=== PATIENT | male | born 1960 | race Caucasian/White ===

== ENCOUNTER 2018-09-26 07:27 | Emergency (ER) | payer OTHER, SELFPAY ==
[2018-09-26] VITALS (22 sets, daily range): BP systolic 75–186; BP diastolic 54–109; PULSE 46–70; RESP 11–18; TEMP 37.1; O2SAT 95–100; BMI 31.2
--- NOTE | 2018-09-26 07:53 | PC.NURSE ---
pt and spouse reports, pt with left epigastric,left chest ,back discomfort since monday, seen and evaluated at [facility], given rx omeprazole, tums. today spouse noted, high bp 191/110. pt continue to have left chest discomfort worsen with deep breathing. denies fever,coughing,vomiting. denies trauma,injuries.
--- NOTE | 2018-09-26 07:54 | DI.RAD.S_ITS ---
PROCEDURE: XR CHEST 1V INDICATIONS: chest pain, radiating to back TECHNIQUE: One view of the chest was acquired. COMPARISON: None. FINDINGS: Surgical changes and devices: None. Lungs and pleura: Lungs are clear. No pleural effusions or pneumothorax. Mediastinum: Mediastinal contours appear normal. Heart size is normal. Bones and chest wall: No suspicious bony lesions. Overlying soft tissues appear unremarkable. IMPRESSION: No acute process. Dictated by: Miranda Bates M.D. on 09/26/2018 at 8:32 Approved by: Miranda Bates M.D. on 09/26/2018 at 8:35
[2018-09-26] MEDS: ASPIRIN 81 MG TAB 324 MG PO (08:05)
[2018-09-26] MEDS: SODIUM CHLORIDE 0.9% 1,000 ML 150 ML IV (08:05)
--- NOTE | 2018-09-26 08:15 | ED_ITS ---
HPI - Chest Pain General Chief Complaint: Chest Pain Stated Complaint: CHEST/BACK PAIN, BLOOD PRESSURE HIGH Time Seen by Provider: 09/26/18 08:13 Source: patient, family () and old records reviewed Mode of arrival: ambulatory Limitations: no limitations History of Present Illness HPI narrative: This is a 58-year-old male comes to the emergency department with complaint of anterior chest pain that sort of radiates around to the left side into his left back. He states he also has some epigastric upper abdominal pain. He states started about a week ago Monday, it is becoming increasingly more frequent and has been pretty much constant today. Patient states that it worsened significantly on Monday. Patient states that he sometimes finds that movement is helpful if he leans or moves around patient states that nothing else seems to make it much better or worse. He does have increased pain with deep in spiration. He states he does not really feel short of breath, he can walk Um without much issue. He states food does not seem to exacerbate his symptoms. He has tried Maalox, Mepron sole and some Tylenol p.m. without any improvement. He denies any fevers, denies any chills. He has felt slightly nauseated today. Denies any vomiting. He denies any changes to bowel movements and has had normal bowel movements. No urinary issues. No swelling in his lower extremities. No rashes or skin changes to his back or chest. His thought she noticed a little bit of swelling of his posterior back. He does have a history of gastritis and diverticulitis. Patient states that he has been seen a unit of and had EGD and colonoscopy about 2 years ago. Postop take omeprazole daily but has not been consistent with this. He also has a history of prostate cancer and had surgery as well as an appendectomy. He does not have any history of hypertension dyslipidemia or diabetes. Patient does not smoke. Drinks 3-5 beers weekly, no illicit. His mother had a pacemaker placed she 79 now. His fa ther and siblings are treated for hypertension dyslipidemia but no other cardiac, pulmonary or pulmonary emboli history. Of note patient did travel to [place] a month ago. Related Data Home Medications Medication Instructions Recorded Confirmed diphenhydramine-acetaminophen 500 mg PO PRN PRN 09/26/18 09/26/18 [Tylenol PM Extra Strength] omeprazole 40 mg PO BID 09/26/18 09/26/18 Previous Rx's Medication Instructions Recorded hydrocodone-acetaminophen [[place]] 1 tab PO Q6H PRN #10 tab 09/26/18 omeprazole 40 mg PO BID #30 cap 09/26/18 sucralfate [Carafate] 1 gram PO QACHS #30 tab 09/26/18 Allergies Allergy/AdvReac Type Severity Reaction Status Date / Time house dust [HOUSE DUST] Allergy Unknown Verified 09/26/18 07:47 nitroglycerin AdvReac Hypotension Verified 09/26/18 09:29 cats Allergy Unknown Uncoded 09/26/18 07:47 Review of Systems Review of Systems ROS Unobtainable: All systems reviewed & are unremarkable except as noted in HPI and below Constitutional Denies chills, Denies fatigue, Denies fever(s), Denies lethargy and Denies weakness Cardiovascular Reports chest pain, Reports chest pain at rest, Reports chest pain with activity, Denies diaphoresis, Denies syncope, Denies edema, Denies irregular heart rhythm, Denies lightheadedness, Denies radiating jaw, neck or arm pain, Denies palpitations, Denies dyspnea, Denies dyspnea on exertion and Denies orthopnea Respiratory Denies change in phlegm color, Denies chest congestion, Denies cough, Reports pain on inspiration, Denies dyspnea, Denies dyspnea on exertion, Denies stridor and Denies wheezing Gastrointestinal Gastrointestinal: Reports abdominal pain (epigastric), Denies melena, Denies hematochezia, Denies change in bowel habits, Denies constipation, Reports heartburn (feels different), Denies diarrhea, Reports nausea (very mild just today) and Denies vomiting Genitourinary Denies hematuria, Denies flank pain, Denies urinary frequency, Denies urinary incontinence and Denies urinary urgency Musculoskeletal Reports back pain (pain radiates from anterior chest around left to left thoracic back) Integumentary/Breasts Denies erythema and Denies rash Neurologic Denies syncope and Denies weakness Endocrine Denies fatigue and Denies palpitations Allergic/Immunologic Denies wheezing PFSH Medical History (Updated 09/26/18 @ 10:43 by Deb Bradford DO) Gastritis (Chronic) Social History Smoking Status: Never smoker Social History (Updated 09/26/18 @ 08:57 by Deb C Mank, DO) marital status: Smoking Status: Never smoker alcohol intake: current substance use type: does not use Exam Narrative Exam Narrative: GENERAL: Alert and oriented x three, well-nourished, well- appearing male in moderate distress. HEENT: Head normocephalic, atraumatic, EOMI, pupils reactive, face symmetric, moist mucous membranes NECK: Supple, full range of motion CARDIOVASCULAR: Regular rate and rhythm without murmurs, rubs or gallops. RESPIRATORY: Breath sounds equal bilaterally, no wheezes rales or rhonchi. No tachypnea, no accessory muscle use speaks in full sentences. ABDOMEN: Soft, mildy tender to palpation in epigastric region. Normoactive bowel sounds all 4 quadrants. No guarding or rebound, rigidity, no mass : No CVA tenderness EXTREMITIES: Normal range of motion, no clubbing or edema. 2+ pulses bilateral lower extremities. Neurovascularly intact NEUROLOGICAL: Cranial nerves II through XII grossly intact. Moving all extremities SKIN: Warm, dry, no petechiae, no rashes or lesions. No rash or vesicles noted on chest or back. Initial Vital Signs Initial Vital Signs: Vital Signs Temperature 98.8 F 09/26/18 07:47 Pulse Rate 68 09/26/18 07:47 Respiratory Rate 16 09/26/18 07:47 Blood Pressure 162/100 H 09/26/18 07:47 Pulse Oximetry 99 09/26/18 07:47 Scores HEART Score Heart Score history: Slightly Suspicious Heart Score EKG: Normal Heart Score Age: 45-64 years old Heart Score risk factors: No known risk factors Heart Score troponin: < or = to normal limit Heart Score Total: 1 Course Orders Ordered: ED Orders 09/26/18 09:45 CT angio chest abdomen pelvis Stat Discontinued Medications Aspirin (Aspirin Chew) 324 mg PO NOW ONE Stop: 09/26/18 07:55 Last Admin: 09/26/18 08:05 Dose: 324 mg Fentanyl (Sublimaze) 50 mcg IV NOW ONE Stop: 09/26/18 09:57 Last Admin: 09/26/18 09:57 Dose: 50 mcg Sodium Chloride (Normal Saline 0.9%) 1,000 mls @ 150 mls/hr IV CONT AMEENA Last Infusion: 09/26/18 11:58 Dose: 0 mls/hr Infusion: 09/26/18 09:34 Dose: 150 mls/hr Infusion: 09/26/18 09:21 Dose: 999 mls/hr Admin: 09/26/18 08:05 Dose: 150 mls/hr Ketorolac Tromethamine (Toradol) 30 mg IV NOW ONE Stop: 09/26/18 11:11 Last Admin: 09/26/18 11:22 Dose: 30 mg Nitroglycerin (Nitrostat) 0.4 mg SL [id number] PRN PRN Reason: Chest Pain Last Admin: 09/26/18 09:10 Dose: 0.4 mg Admin: 09/26/18 09:06 Dose: 0.4 mg Vital Signs - 8 hr 09/26/18 10:00 09/26/18 10:15 09/26/18 10:30 Pulse Rate 51 L 46 L 53 L Respiratory Rate 16 16 16 Blood Pressure [Left Arm] 121/92 H 121/83 135/86 Pulse Oximetry 99 98 09/26/18 10:45 09/26/18 11:00 09/26/18 11:10 Pulse Rate 48 L 51 L 53 L Respiratory Rate 16 15 Blood Pressure [Left Arm] 133/96 H 147/94 H 137/90 Pulse Oximetry 98 98 97 09/26/18 11:15 09/26/18 11:20 09/26/18 11:39 Pulse Rate 51 L 51 L 53 L Respiratory Rate 15 12 17 Blood Pressure [Left Arm] 141/90 H 129/77 141/99 H Pulse Oximetry 98 98 97 MDM - Chest Pain Lab Data Attestation: I reviewed the patient's lab results. Result diagrams: 09/26/18 08:10 09/26/18 08:10 Lab Results 09/26/18 09/26/18 09/26/18 Range/Units 08:10 08:10 08:10 WBC 9.3 (4.5-11.0) X10^3/uL RBC 5.20 (4.5-5.9) X10^6/uL Hgb 15.5 (13.5-17.5) g/dL Hct 46.6 (41-53) % MCV 89.6 (80-100) fL MCH 29.8 (26-34) PG MCHC 33.3 (30-36) % RDW 13.8 (11.6-14.8) % Plt Count 350 (150-400) X10^3/uL Neut % (Auto) 67.9 (50-75) % Lymph % (Auto) 18.3 L (25-40) % Emmons % (Auto) 9.6 (3-14) % Eos % (Auto) 3.5 (2-4) % Baso % (Auto) 0.7 (0-2) % Neut # (Auto) 6300 (2918-8601) /uL Lymph # (Auto) 1700 (7148-6050) /uL Emmons # (Auto) 900 (0-900) /uL Eos # (Auto) 300 (0-450) /uL Baso # (Auto) 100 (0-100) /uL PT (10.1-12.7) SECONDS INR (0.9-1.3) APTT (26.4-36.2) SECONDS D-Dimer < 230 (<230) ng/mL Sodium 139 (137-145) mmol/L Potassium 4.6 (3.4-5.1) mmol/L Chloride 101 (98-107) mmol/L Carbon Dioxide 29 (22-32) mmol/L BUN 12 (9-20) mg/dL Creatinine 0.90 (0.66-1.25) mg/dL Estimated GFR > 60.0 (>60) mL/min BUN/Creatinine Ratio 13.3 (6-22) Glucose 109 H (70-100) mg/dL Calcium 10.5 H (8.4-10.2) mg/dL Total Bilirubin 0.9 (0.2-1.3) mg/dL AST 41 (17-59) IU/L ALT 48 (21-72) IU/L Alkaline Phosphatase 68 (38-126) U/L Total Creatine Kinase 57 (55-170) U/L CK-MB (CK-2) TNP CK-MB (CK-2) Rel Index TNP Troponin I < 0.012 (0.01-0.034) ng/mL Total Protein 8.1 (6.3-8.2) g/dL Albumin 4.7 (3.5-5.0) g/dL Globulin 3.4 (1.7-4.1) g/dL Albumin/Globulin Ratio 1.4 (1.0-2.8) Lipase 39 (23-300) U/L 09/26/18 Range/Units 08:10 WBC (4.5-11.0) X10^3/uL RBC (4.5-5.9) X10^6/uL Hgb (13.5-17.5) g/dL Hct (41-53) % MCV (80-100) fL MCH (26-34) PG MCHC (30-36) % RDW (11.6-14.8) % Plt Count (150-400) X10^3/uL Neut % (Auto) (50-75) % Lymph % (Auto) (25-40) % Emmons % (Auto) (3-14) % Eos % (Auto) (2-4) % Baso % (Auto) (0-2) % Neut # (Auto) (8144-3309) /uL Lymph # (Auto) (9042-7703) /uL Emmons # (Auto) (0-900) /uL Eos # (Auto) (0-450) /uL Baso # (Auto) (0-100) /uL PT 11.7 (10.1-12.7) SECONDS INR 1.0 (0.9-1.3) APTT 34 (26.4-36.2) SECONDS D-Dimer (<230) ng/mL Sodium (137-145) mmol/L Potassium (3.4-5.1) mmol/L Chloride (98-107) mmol/L Carbon Dioxide (22-32) mmol/L BUN (9-20) mg/dL Creatinine (0.66-1.25) mg/dL Estimated GFR (>60) mL/min BUN/Creatinine Ratio (6-22) Glucose (70-100) mg/dL Calcium (8.4-10.2) mg/dL Total Bilirubin (0.2-1.3) mg/dL AST (17-59) IU/L ALT (21-72) IU/L Alkaline Phosphatase (38-126) U/L Total Creatine Kinase (55-170) U/L CK-MB (CK-2) CK-MB (CK-2) Rel Index Troponin I (0.01-0.034) ng/mL Total Protein (6.3-8.2) g/dL Albumin (3.5-5.0) g/dL Globulin (1.7-4.1) g/dL Albumin/Globulin Ratio (1.0-2.8) Lipase (23-300) U/L Imaging Data Chest x-ray: Radiologist's impression: [place] [address] XRay Report Signed Patient: Raudel Corbett LMR#: [id number] : [id number]:[id number] Age/Sex: 58 / MDate of Service: 09/26/18 Loc: ED Accession Number: [id number] Procedure: XR chest 1V Ordering Provider: Deb Bradford D.O. PROCEDURE: XR CHEST 1V INDICATIONS: chest pain, radiating to back TECHNIQUE: One view of the chest was acquired. COMPARISON: None. FINDINGS: Surgical changes and devices: None. Lungs and pleura: Lungs are clear. No pleural effusions or pneumothorax. Mediastinum: Mediastinal contours appear normal. Heart size is normal. Bones and chest wall: No suspicious bony lesions. Overlying soft tissues ap pear unremarkable. IMPRESSION: No acute process. Dictated by: Miranda Bates M.D. on 09/26/2018 at 8:32 Approved by: Miranda Bates M.D. on 09/26/2018 at 8:35 chest/abd/pelvis Angio: Radiologist's impression: 13 DO Esmer Prado Patient Imaging Raudel Corbett 58 M 1960 ACTIVITY DATE EXAM STATUS AUTHOR 09/26/18 09:45 Signed Miranda Bates 09/26/18 07:[address] [place] [address] CT Scan Report Signed Patient: Raudel Corbett LMR#: [id number] : [id number]:[id number] Age/Sex: 58 / MDate of Service: 09/26/18 Loc: ED Accession Number: [id number] Procedure: CT angio chest abdomen pelvis Ordering Provider: Deb Bradford D.O. PROCEDURE: CT ANGIO CHEST ABDOMEN PELVIS INDICATIONS: chest pain/epigastric, rads to back, htn, flew to nona TECHNIQUE: Precontrast 5 mm thick sections acquired from the lung apices to the iliac crests. After the administration of intravenous contrast, 2.5 mm thick sections again acquired from the lung apices to the iliac crests. Maximum intensity projection (MIP) oblique sagittal and coronal reformats were then acquired. For radiation dose reduction, the following was used: automated exposure control. COMPARISON: None. FINDINGS: Image quality: Excellent. AORTA: The sinuses of Valsalva measure 47 mm short axis. The sinotubular junction measures 33 mm short axis. The mid ascending thoracic aorta measures 41 mm short axis. The proximal aortic arch measures 37 mm short axis. The distal aortic arch measures 29 mm short axis. The proximal descending thoracic aorta measures 33 mm short axis. The distal descending thoracic aorta measures 27 mm short axis. The thoracoabdominal aorta at the diaphragmatic hiatus measures 29 mm short axis . The perirenal abdominal aorta and measures 25 mm short axis . The mid infrarenal abdominal aorta measures 18 mm short axis . The distal abdominal aorta measures 20 mm short axis . There is no evidence of aortic dissection nor significant stenosis. No evidence of intramural hematoma. CHEST: Lungs and pleura: No acute airspace opacities. 5 mm diameter subpleural nodule within the left upper lobe anteriorly. 6 mm diameter nodule within the inferolateral lingula. No pleural effusions or pneumothorax. Central and peripheral airways are patent and normal in caliber. Mediastinum: Heart size is normal. No evidence of coronary arterial calcification. No pericardial effusion. No mediastinal or hilar adenopathy by size criteria. Central pulmonary arteries are normal in size. Esophagus is normal in caliber. No hiatal hernias. Bones and chest wall: No axillary adenopathy by size criteria. Thyroid gland is within normal limits. No suspicious bony lesions. No vertebral body compression fractures. ABDOMEN: Vasculature: Celiac trunk and mesenteric arteries are patent. Renal arteries are also patent. Solid organs: Liver is normal in size and enhancement. Gallbladder is within normal limits. Biliary system is non dilated. Pancreas enhances normally. Spleen is normal in size and enhancement. No adrenal nodules. Both kidneys are normal in size and enhancement, without hydronephrosis. Peritoneum and bowel: No free fluid or air. Bowel loops are normal in caliber and wall thickness. Nodes and vessels: No retroperitoneal or mesenteric adenopathy by size criteria. Inferior vena cava is normal in morphology. Miscellaneous: 25 mm fat containing umbilical hernia. PELVIS: Genitourinary: Bladder wall thickness is normal. Miscellaneous: No inguinal hernias or adenopathy. No ventral hernias. Bones: No suspicious bony lesions. No vertebral body compression fractures. IMPRESSION: 1. Mild dilatation of the sinuses of Valsalva. No evidence of dissection nor significant stenosis. 2. Left lung nodules. Followup is recommended as below. Fleischner Society criteria for SOLID lung nodule followup. Nodule size (mm)Low-risk patientHigh-risk patient<6 (single or multiple)No routine followup.Optional CT at 12 months. 6-8 (single or multiple)CT at 6-12 months, then optional CT at 18-24 mo.CT at 6-12 months, then CT at 18-24 months. >8 (single)CT, PET-CT, or biopsy at 3 months. Same as for low-risk pts. >8 (multiple)CT at 3-6 months, then optional CT at 18-24 mo.CT at 3-6 months, then CT at 18-24 months. Recommendations do not apply to lung cancer screening, patients with immunosuppression, or patients with known primary cancer. Dictated by: Miranda Bates M.D. on 09/26/2018 at 10:10 Approved by: Miranda Bates M.D. on 09/26/2018 at 10:30 ECG Data Attestation: I personally reviewed and interpreted this ECG as follows: Prior ECG tracings: available for review Interpretation: Sinus rhythm with ventricular rate of 62, [place] 192 QRS of 110 and QTC of 433. No ST elevation or depression appreciated. No prior EKG available in cardioserver there is in EMR. MDM Narrative Medical decision making narrative: Recheck after nitro, back pain slightly impoved but pressure dropped to 70 systolic after two doses. Given fentanyl IV. CT angio for pe but patient also has abdominal discomfort so included abdomen pelvis. Shows 2 lung nodules which were discussed with patient. And noted to have mild dilation of the sinuses of Valsalva. Reviewed with Radiology, they felt this is likely an incidental finding. They would recommend ECHO or gated angiography as outpatient as needed. Spoke with Dr. Rose from cardiology, based on size of the sinuses this is unlikely to be an issue. These are still normal range for patient of this size. Would recommend echo stress test as out patient as needed. We also discussed the risks of patient's PPI and cardiac cause is much less likely. Patient given some Toradol symptoms have improved markedly. Discussed I would recommend that he continue his omeprazole given a script for Carafate. We discussed Cardiology recommendations he was given physician referral number to help him set up with primary care. We also discussed CT findings regarding pulmonary nodules, patient is to follow up with pcp regarding this. Discharge Plan Departure Patient Disposition: Home Clinical Impression: Atypical chest pain, Multiple pulmonary nodules Discharge Date/Time: 09/26/18 12:08 Interventions: ED Discharge Assessment Last Done: 09/26/18 12:07 Instructions: DI for Atypical Chest Pain Activity Restrictions/Additional Instructions: Follow-up with primary care this week. Call [phone] for the health human resources talent manager to help you get established with a primary care physician. Take omeprazole 40 mg twice daily, take Carafate 1 g before meals and bed. Your prescriptions were sent to [facility] in [place]. You may take [place] 1 tablet every 6 hours as needed for pain, this is a narcotic pain medication so do not drive, perform hazards activities make any major decisions while taking this medication. CT of your chest did show 2 small lung nodules, discuss with your physician about whether you would be a candidate for repeat CT imaging in [address] also showed some dilation of the sinuses of Valsalva, this was discussed with Radiology as well as Cardiology and felt to not be abnormal based on your size. Cardiology did suggest outpatient stress testing and ECHO if symptoms continue. Return to the emergency department for fevers greater than 100.4 F, passing out, rapidly worsening chest pain, abdominal pain or back pain. Persistent vomiting, black or bloody stools or other new or concerning symptoms. Prescriptions: New sucralfate [Carafate] 1 gram tablet 1 gram PO QACHS Qty: 30 RF: 0 omeprazole 40 mg capsule,delayed release(DR/EC) 40 mg PO BID Qty: 30 RF: 0 hydrocodone-acetaminophen [[place]] 5-325 mg tablet 1 tab PO Q6H PRN (Reason: pain) Qty: 10 RF: 0 No Action omeprazole 40 mg capsule,delayed release(DR/EC) 40 mg PO BID RF: 0 diphenhydramine-acetaminophen [Tylenol PM Extra Strength] 25-500 mg Tablet 500 mg PO PRN PRN (Reason: Pain (Scale Score 1-3)) RF: 0
[2018-09-26 08:26] LABS: Add Manual Diff / Slide Review NO; Basophils Absolute Auto 100 /uL (0-100); Basophils Percent Auto 0.7 % (0-2); Eosinophils Absolute Auto 300 /uL (0-450); Eosinophils Percent Auto 3.5 % (2-4); Hematocrit 46.6 % (41-53); Hemoglobin 15.5 g/dL (13.5-17.5); Lymphocytes Absolute Auto 1700 /uL (1100-4500); Lymphocytes Percent Auto 18.3 % (25-40); Mean Corpuscular HGB Conc 33.3 % (30-36); Mean Corpuscular Hemoglobin 29.8 PG (26-34); Mean Corpuscular Volume 89.6 fL (80-100); Monocytes Absolute Auto 900 /uL (0-900); Monocytes Percent Auto 9.6 % (3-14); Neutrophils Absolute Auto 6300 /uL (1500-7000); Neutrophils Percent Auto 67.9 % (50-75); Platelet Count 350 X10^3/uL (150-400); Red Cell Distribution Width 13.8 % (11.6-14.8); White Blood Cell Count 9.3 X10^3/uL (4.5-11.0)
[2018-09-26 08:38] LABS: Alanine Aminotransferase 48 IU/L (21-72); Albumin 4.7 g/dL (3.5-5.0); Albumin Globulin Ratio 1.4 (1.0-2.8); Alkaline Phosphatase 68 U/L (38-126); Aspartate Aminotransferase 41 IU/L (17-59); BUN Creatinine Ratio 13.3 (6-22); Bilirubin Total 0.9 mg/dL (0.2-1.3); Blood Urea Nitrogen 12 mg/dL (9-20); Calcium 10.5 mg/dL (8.4-10.2); Carbon Dioxide 29 mmol/L (22-32); Chloride 101 mmol/L (98-107); Creatine Kinase 57 U/L (55-170); Estimated Glomerular Filt Rate > 60.0 mL/min (>60); Globulin 3.4 g/dL (1.7-4.1); Glucose 109 mg/dL (70-100); HEMOLYSIS < 15 (0-50); Lipase 39 U/L (23-300); Potassium 4.6 mmol/L (3.4-5.1); Sodium 139 mmol/L (137-145); Total Protein 8.1 g/dL (6.3-8.2)
[2018-09-26 08:49] LABS: Troponin I < 0.012 ng/mL (0.01-0.034)
[2018-09-26] MEDS: NITROGLYCERIN 0.4 MG SL TAB SL ×2 (09:06→09:10)
[2018-09-26 09:08] LABS: D Dimer < 230 ng/mL (<230)
[2018-09-26 09:09] LABS: PTT Partial Thromboplastin Tim 34 SECONDS (26.4-36.2); Prothrombin Time 11.7 SECONDS (10.1-12.7)
--- NOTE | 2018-09-26 09:18 | PC.NURSE ---
reposition slight reverse trelenberg.
--- NOTE | 2018-09-26 09:21 | PC.NURSE ---
iv fluids bolus 250
--- NOTE | 2018-09-26 09:25 | PC.NURSE ---
pt states back pain is better, but no changes on epigastric. remain alert and awake, skin warm dry pink.
--- NOTE | 2018-09-26 09:45 | DI.CT.S_ITS ---
PROCEDURE: CT ANGIO CHEST ABDOMEN PELVIS INDICATIONS: chest pain/epigastric, rads to back, htn, flew to nona TECHNIQUE: Precontrast 5 mm thick sections acquired from the lung apices to the iliac crests. After the administration of intravenous contrast, 2.5 mm thick sections again acquired from the lung apices to the iliac crests. Maximum intensity projection (MIP) oblique sagittal and coronal reformats were then acquired. For radiation dose reduction, the following was used: automated exposure control. COMPARISON: None. FINDINGS: Image quality: Excellent. AORTA: The sinuses of Valsalva measure 47 mm short axis. The sinotubular junction measures 33 mm short axis. The mid ascending thoracic aorta measures 41 mm short axis. The proximal aortic arch measures 37 mm short axis. The distal aortic arch measures 29 mm short axis. The proximal descending thoracic aorta measures 33 mm short axis. The distal descending thoracic aorta measures 27 mm short axis. The thoracoabdominal aorta at the diaphragmatic hiatus measures 29 mm short axis . The perirenal abdominal aorta and measures 25 mm short axis . The mid infrarenal abdominal aorta measures 18 mm short axis . The distal abdominal aorta measures 20 mm short axis . There is no evidence of aortic dissection nor significant stenosis. No evidence of intramural hematoma. CHEST: Lungs and pleura: No acute airspace opacities. 5 mm diameter subpleural nodule within the left upper lobe anteriorly. 6 mm diameter nodule within the inferolateral lingula. No pleural effusions or pneumothorax. Central and peripheral airways are patent and normal in caliber. Mediastinum: Heart size is normal. No evidence of coronary arterial calcification. No pericardial effusion. No mediastinal or hilar adenopathy by size criteria. Central pulmonary arteries are normal in size. Esophagus is normal in caliber. No hiatal hernias. Bones and chest wall: No axillary adenopathy by size criteria. Thyroid gland is within normal limits. No suspicious bony lesions. No vertebral body compression fractures. ABDOMEN: Vasculature: Celiac trunk and mesenteric arteries are patent. Renal arteries are also patent. Solid organs: Liver is normal in size and enhancement. Gallbladder is within normal limits. Biliary system is non dilated. Pancreas enhances normally. Spleen is normal in size and enhancement. No adrenal nodules. Both kidneys are normal in size and enhancement, without hydronephrosis. Peritoneum and bowel: No free fluid or air. Bowel loops are normal in caliber and wall thickness. Nodes and vessels: No retroperitoneal or mesenteric adenopathy by size criteria. Inferior vena cava is normal in morphology. Miscellaneous: 25 mm fat containing umbilical hernia. PELVIS: Genitourinary: Bladder wall thickness is normal. Miscellaneous: No inguinal hernias or adenopathy. No ventral hernias. Bones: No suspicious bony lesions. No vertebral body compression fractures. IMPRESSION: 1. Mild dilatation of the sinuses of Valsalva. No evidence of dissection nor significant stenosis. 2. Left lung nodules. Followup is recommended as below. Fleischner Society criteria for SOLID lung nodule followup. Nodule size (mm)Low-risk patientHigh-risk patient<6 (single or multiple)No routine followup.Optional CT at 12 months. 6-8 (single or multiple)CT at 6-12 months, then optional CT at 18-24 mo.CT at 6-12 months, then CT at 18-24 months. >8 (single)CT, PET-CT, or biopsy at 3 months. Same as for low-risk pts. >8 (multiple)CT at 3-6 months, then optional CT at 18-24 mo.CT at 3-6 months, then CT at 18-24 months. Recommendations do not apply to lung cancer screening, patients with immunosuppression, or patients with known primary cancer. Dictated by: Miranda Bates M.D. on 09/26/2018 at 10:10 Approved by: Miranda Bates M.D. on 09/26/2018 at 10:30
[2018-09-26] MEDS: fentaNYL 100 MCG/2 ML INJ 50 MCG IV (09:57)
[2018-09-26] MEDS: KETOROLAC 60 MG/2 ML VIAL 30 MG IV (11:22)
== END 2018-09-26 12:08 | disposition home or self-care (01) ==
PROVIDERS: Emergency Provider Emergency Medicine
DX: R07.89 Other chest pain (principal); R91.8 Other nonspecific abnormal finding of lung field; R03.0 Elevated blood-pressure reading, without diagnosis of hypertension; R10.13 Epigastric pain
CPT/HCPCS: 36591; 71045; 71275; 74174; 80053; 82550; 83690; 84484; 85025; 85379; 85610; 85730; 93005; 93010; 93041; 96361; 96374; 96375; 99285; 99291; J1885; J3010; Q9967

== ENCOUNTER → 2019-07-02 14:08 | Outpatient (CLI) | payer OTHER, SELFPAY ==
--- NOTE | 2019-07-02 14:11 | DI.CT.S_ITS ---
PROCEDURE: CT CHEST WO CON INDICATIONS: Surveillance for lung nodule TECHNIQUE: Noncontrast 5 mm thick sections acquired from the pulmonary apices to the posterior costophrenic angles. 1 mm lung window, 5 mm thick coronal and sagittal and 7 mm axial MIP reformats were then acquired. For radiation dose reduction, the following was used: automated exposure control, adjustment of mA and/or kV according to patient size. COMPARISON: [facility], CT, CT ANGIO CHEST ABDOMEN PELVIS, 09/26/2018, 9:38. FINDINGS: Image quality: Excellent. Lungs and pleura: No acute air space opacities. There has been no change in the 2 nodules seen within the left lung, the smallest measuring 3 x 4 mm at anterolateral left upper lobe (3/161) and within the lingular segment left upper lobe (3/222). This 6 mm nodule more inferiorly also has not changed, and no new nodule has developed. No pleural effusions or pneumothorax. Central and peripheral airways are patent and normal in caliber. Mediastinum: Heart size is normal. No pericardial effusion. No mediastinal adenopathy by size criteria. Thoracic aorta and central pulmonary arteries are normal in size. Esophagus is normal in caliber. No hiatal hernia. Bones and chest wall: No suspicious bony lesions. No vertebral body compression fractures. No axillary or supraclavicular adenopathy by size criteria. Thyroid gland is not well-seen but is noncontrast technique. Abdomen: Visualized upper abdominal solid organs and bowel loops appear normal in the absence of contrast. IMPRESSION: 2 left lung nodules measuring up to 3 x 4 mm and 6 mm respectively have not changed from 09/26/18 and no followup is recommended. These likely represent 2 small chronic granulomas. Dictated by: Sameer Baez M.D. on 07/02/2019 at 16:04 Approved by: Sameer Baez M.D. on 07/02/2019 at 16:10
== END ==
PROVIDERS: PCP Family Medicine; Referring Provider Family Medicine; Visit Provider Family Medicine
DX: R91.8 Other nonspecific abnormal finding of lung field (principal)
CPT/HCPCS: 71250

== ENCOUNTER → 2020-01-23 13:31 | Outpatient (CLI) | payer OTHER, SELFPAY ==
--- NOTE | 2020-01-23 13:33 | DI.RAD.S_ITS ---
PROCEDURE: XR HIP W PEL IF DONE LT MIN 4V INDICATIONS: Right hip/leg pain. Evaluate TECHNIQUE: AP pelvis with lateral view(s) of the bilateral hip(s). COMPARISON: None. FINDINGS: Bones: No fractures or dislocations. Pelvic ring appears intact. No suspicious bony lesions. Soft tissues: The visualized bowel gas pattern is normal. No suspicious soft tissue calcifications. IMPRESSION: Mild symmetric hip joint osteoarthritis, no trauma found. No sign of joint effusion or loose body. Dictated by: Sameer Baez M.D. on 01/23/2020 at 15:22 Approved by: Sameer Baez M.D. on 01/23/2020 at 15:23
== END ==
PROVIDERS: PCP Family Medicine; Referring Provider Family Medicine; Visit Provider Family Medicine
DX: M25.551 Pain in right hip (principal); M16.11 Unilateral primary osteoarthritis, right hip
CPT/HCPCS: 73522

== ENCOUNTER → 2020-02-03 11:56 | Outpatient (CLI) | payer OTHER, SELFPAY ==
--- NOTE | 2020-02-03 12:01 | DI.MRI.S_ITS ---
PROCEDURE: MR HIP RT WO CON INDICATIONS: right hip and leg pain TECHNIQUE: Noncontrast coronal T1 spin echo and STIR through the bony pelvis. Coronal and axial T2 fast spin echo with fat saturation, sagittal T1 spin echo, and oblique axial T2 fast spin echo with fat saturation through the hip. COMPARISON: None. FINDINGS: Image quality: Excellent. Bones and joints: No fracture identified. Sacroiliac joints are unremarkable in signal intensity. There is lower lumbar spondylosis and facet arthropathy. No pathologic hip joint effusion. No evidence of osteonecrosis. Tendons and ligaments: There is strain/partial rupture of the distal gluteus katy insertion, for example image 19/3, image 28/7. The gluteus medius and minimus tendons appear intact, without associated muscle atrophy. Proximal iliotibial band intact. Iliopsoas tendon intact. Origin of the hamstring tendon intact. The straight and reflected heads of the rectus femoris muscle origin appear intact Ligamentum teres appears intact where visualized. Labrum: Ill-defined probably chronic degenerative fraying of the anterosuperior labrum. There is adjacent partial-thickness chondral loss. The alpha angle of the femur is within normal limits at less than 55 degrees. Soft tissues: Visualized muscles demonstrate normal bulk and internal signal. Quadratus femoris muscle normal. Proximal sciatic neurovascular bundle appears normal adjacent to the hamstring tendons. No free pelvic fluid. Bladder normal. Genitourinary structures and bowel loops appear normal where visualized. IMPRESSION: Partial rupture/strain of the distal right gluteus katy insertion. Probably chronic degenerative fraying of the anterosuperior labrum. Mild adjacent partial-thickness chondral loss. Dictated by: Harjit Browne M.D. on 02/03/2020 at 12:38 Approved by: Harjit Browne M.D. on 02/03/2020 at 13:02
== END ==
PROVIDERS: PCP Family Medicine; Referring Provider Family Medicine; Visit Provider Family Medicine
DX: M25.551 Pain in right hip (principal); M79.604 Pain in right leg; S76.011A Strain of muscle, fascia and tendon of right hip, initial encounter
CPT/HCPCS: 73721

== ENCOUNTER → 2021-01-18 14:30 | Outpatient (CLI) | payer OTHER, SELFPAY ==
[2021-01-18 17:29] LABS: COVID-19 CEPHEID PCR (VTM/NP) Negative (Negative)
== END ==
PROVIDERS: PCP Family Medicine; Referring Provider Nurse Practitioner Family; Visit Provider Nurse Practitioner Family
DX: Z01.812 Encounter for preprocedural laboratory examination (principal); Z20.822 Contact with and (suspected) exposure to COVID-19
CPT/HCPCS: U0003

== ENCOUNTER → 2022-06-09 08:18 | Outpatient (CLI) | payer OTHER, SELFPAY ==
[2022-06-09 09:52] LABS: Add Manual Diff / Slide Review NO; Basophils Absolute Auto 100 /uL (0-100); Basophils Percent Auto 0.9 % (0-2); Eosinophils Absolute Auto 400 /uL (0-450); Eosinophils Percent Auto 5.2 % (2-4); Hematocrit 41.5 % (41-53); Hemoglobin 14.2 g/dL (13.5-17.5); Lymphocytes Absolute Auto 1700 /uL (1100-4500); Lymphocytes Percent Auto 24.5 % (25-40); Mean Corpuscular HGB Conc 34.2 % (30-36); Mean Corpuscular Hemoglobin 30.1 PG (26-34); Mean Corpuscular Volume 88.2 fL (80-100); Monocytes Absolute Auto 800 /uL (0-900); Monocytes Percent Auto 11.7 % (3-14); Neutrophils Absolute Auto 4100 /uL (1500-7000); Neutrophils Percent Auto 57.7 % (50-75); Platelet Count 294 X10^3/uL (150-400); Red Cell Distribution Width 13.4 % (11.6-14.8); White Blood Cell Count 7.1 X10^3/uL (4.5-11.0)
[2022-06-09 11:16] LABS: TSH w/ Reflex to FT4 0.58 uIU/mL (0.47-4.68)
[2022-06-09 18:45] LABS: Alanine Aminotransferase 35 IU/L (<50); Albumin 4.1 g/dL (3.5-5.0); Albumin Globulin Ratio 1.4 (1.0-2.8); Alkaline Phosphatase 65 U/L (38-126); Aspartate Aminotransferase 27 IU/L (17-59); BUN Creatinine Ratio 12.9 (6-22); Bilirubin Total 0.6 mg/dL (0.2-1.3); Blood Urea Nitrogen 12 mg/dL (9-20); Calcium 9.9 mg/dL (8.4-10.2); Carbon Dioxide 28 mmol/L (22-32); Chloride 101 mmol/L (98-107); Cholesterol 212 mg/dL (140-199); Estimated Glomerular Filt Rate > 60 mL/min (>60); Glucose 83 mg/dL (80-110); HDL Cholesterol 54 mg/dL (40-60); HEMOLYSIS < 15 (0-50); LDL Cholesterol Calculated 129 mg/dL (<100); Sodium 138 mmol/L (137-145); Total Protein 7.1 g/dL (6.3-8.2); Triglycerides 145 mg/dL (35-150)
[2022-06-09 19:20] LABS: Prostate Specific Antigen < 0.064 ng/mL (0.10-4.00)
== END ==
PROVIDERS: PCP Family Medicine; Referring Provider Family Medicine; Visit Provider Family Medicine
DX: I10 Essential (primary) hypertension (principal); K21.9 Gastro-esophageal reflux disease without esophagitis; Z12.5 Encounter for screening for malignant neoplasm of prostate; Z13.9 Encounter for screening, unspecified
CPT/HCPCS: 36415; 80053; 80061; 84153; 84443; 85025

== ENCOUNTER → 2022-08-16 09:28 | Outpatient (CLI) | payer OTHER, SELFPAY ==
--- NOTE | 2022-08-16 | DI.MRI.S_ITS ---
PROCEDURE: MR ANKLE LT WO/W CON INDICATIONS: Ganglion, unspecified site TECHNIQUE: Noncontrast sagittal T1 spin echo and T2 fast spin echo with fat saturation, axial proton density fast spin echo and T2 fast spin echo with fat saturation, axial T1 spin echo with fat saturation, coronal T1 spin echo and T2 fast spin echo with fat saturation through the ankle/hindfoot. Post-contrast axial, coronal, and sagittal T1 spin echo with fat saturation through the ankle/hindfoot. COMPARISON: [facility] [place], CR, XR ANKLE 3+ VIEWS LEFT, 07/27/2022, 16:23. FINDINGS: Image quality: Excellent. Bones and soft tissues: In the subcutaneous tissues at the anterior lateral aspect of the lower leg just anterior to the fibular metadiaphysis, there is a circumscribed [id number] mass lesion measuring 1.5 x 1.2 x 1.6 cm. Mild surrounding subcutaneous edema is present. The mass demonstrates homogeneous hyper enhancement on postcontrast images. No involvement of osseous structures or adjacent musculature is seen. No bone marrow contusions or fractures. No hindfoot coalitions. Focal full-thickness cartilage loss is seen overlying the medial talar dome with adjacent subchondral cystic changes. The overlying subchondral plate is intact. No loose osteochondral fragment. Mild degenerative spurring of the dorsal talonavicular joint. Medial structures: The deep and superficial layers of the deltoid ligament appear intact. The spring ligament components are intact. The posterior tibialis, flexor digitorum longus, and flexor hallucis longus tendons are intact. The posterior tibial neurovascular bundle appears normal within the tarsal tunnel, without extrinsic mass effect. Lateral structures: Mild thickening of the anterior talofibular ligament is most likely secondary to a remote prior sprain. The calcaneofibular ligament and posterior talofibular ligament are intact. The anterior and posterior tibiofibular ligaments appear intact. The peroneus longus and brevis tendons demonstrate normal location and morphology. The sinus tarsi demonstrates normal fatty signal, without edema, fibrosis, or cyst formation. Anterior structures: The tibialis anterior, extensor hallucis longus, and extensor digitorum longus tendons appear intact. The dorsal talonavicular ligament appears intact. Posterior and plantar structures: Achilles tendon is intact. Medial and lateral bands of the plantar fascia are of normal thickness. No abductor digiti quinti muscle atrophy to suggest Whitaker neuropathy. IMPRESSION: Solid homogeneously enhancing 1.6 cm circumscribed soft tissue mass in the subcutaneous tissues at the anterolateral aspect of the lower leg just proximal to the ankle. Primary differential considerations include peripheral nerve sheath tumor or synovial cell sarcoma, although other benign and malignant soft tissue masses are not excluded. Approved by: Garret Conway M.D. on 08/16/2022 at 12:21
== END ==
PROVIDERS: PCP Family Medicine; Referring Provider Podiatrist; Visit Provider Podiatrist
DX: R22.42 Localized swelling, mass and lump, left lower limb (principal); M67.40 Ganglion, unspecified site
CPT/HCPCS: 73723

== ENCOUNTER → 2024-04-15 07:40 | Outpatient (CLI) | payer OTHER, SELFPAY ==
[2024-04-15 09:23] LABS: Alanine Aminotransferase 42 IU/L (<50); Albumin 4.2 g/dL (3.5-5.0); Albumin Globulin Ratio 1.4 (1.0-2.8); Alkaline Phosphatase 79 U/L (38-126); Aspartate Aminotransferase 34 IU/L (17-59); Bilirubin Total 0.6 mg/dL (0.2-1.3); Blood Urea Nitrogen 17 mg/dL (9-20); Calcium 10.5 mg/dL (8.4-10.2); Carbon Dioxide 29 mmol/L (22-32); Chloride 105 mmol/L (98-107); Cholesterol 243 mg/dL (140-199); Estimated Glomerular Filt Rate > 60 mL/min (>60); Globulin 2.9 g/dL (1.7-4.1); Glucose 93 mg/dL (80-110); HDL Cholesterol 70 mg/dL (40-60); HEMOLYSIS < 15 (0-50); LDL Cholesterol Calculated 138 mg/dL (<100); Potassium 4.8 mmol/L (3.4-5.1); Sodium 138 mmol/L (137-145); Total Protein 7.1 g/dL (6.3-8.2); Triglycerides 177 mg/dL (35-150)
[2024-04-15 09:56] LABS: Prostate Specific Antigen < 0.064 ng/mL (0.10-4.00)
== END ==
LOC: LAB 07:41
PROVIDERS: PCP Family Medicine; Referring Provider Family Medicine; Visit Provider Family Medicine
DX: I10 Essential (primary) hypertension (principal); Z85.46 Personal history of malignant neoplasm of prostate; T78.40XA Allergy, unspecified, initial encounter
CPT/HCPCS: 36415; 80053; 80061; 84153